=== PATIENT | female | born 1975 | race Hispanic/Latino ===

== ENCOUNTER 2019-05-20 13:19 | Emergency (ER) | payer BC, OTHER ==
[~2019-05-20 13:19] MED LIST: FAMO-136 PO; METF-446 PO
[2019-05-20] MEDS ORDERED: IBUPROFEN 800 MG TAB ONE (14:04)
[2019-05-20] MEDS ORDERED: ACETAMINOPHEN EXTRA STRENGTH 500 MG TABLET ONE (14:04)
[2019-05-20 14:29] LABS: RAPID GROUP A STREP NEGATIVE (NEGATIVE)
== END 2019-05-20 15:26 | disposition home or self-care (01) ==
LOC: EDH 13:19
DX: J11.1 Influenza due to unidentified influenza virus with other respiratory manifestations (principal); R50.9 Fever, unspecified; E11.9 Type 2 diabetes mellitus without complications; Z90.710 Acquired absence of both cervix and uterus; Z90.49 Acquired absence of other specified parts of digestive tract; Z88.5 Allergy status to narcotic agent
CPT/HCPCS: 87804; 87880

== ENCOUNTER 2019-05-26 13:52 | Emergency (ER) | payer BC | END 2019-05-26 14:33 | disposition left against medical advice (07) | LOC: EDH 13:52 | DX: Z02.89 Encounter for other administrative examinations (principal); E11.9 Type 2 diabetes mellitus without complications; Z90.49 Acquired absence of other specified parts of digestive tract; Z90.710 Acquired absence of both cervix and uterus; Z88.5 Allergy status to narcotic agent | CPT/HCPCS: 99281 ==